=== PATIENT | female | born 1930 | race Caucasian/White ===

== ENCOUNTER 2019-01-03 02:34 | Inpatient (IN) | payer OTHER ==
[~2019-01-03] VITALS: Ht 165.1 cm; Wt 84.6 kg
[2019-01-03] MEDS ORDERED: NORVASC5 M1 PO (03:48)
[2019-01-03] MEDS ORDERED: COZAAR 25 MG TA25 M1 PO (03:51)
[2019-01-03] MEDS ORDERED: PROTONIX40 M1 PO (03:51)
[2019-01-03] MEDS ORDERED: ASPIR 8181 MG PO (03:54)
[2019-01-03 03:55] VITALS: BP 175/88
[2019-01-03] MEDS ORDERED: ALOGLIPTIN12.5 MG PO (03:56)
[2019-01-03] MEDS ORDERED: CO Q-10100 MG PO (03:57)
[2019-01-03] MEDS ORDERED: AMARYL2 MG PO (03:58)
[2019-01-03] MEDS ORDERED: FEOSOL45 M1 PO (03:59)
[2019-01-03] MEDS ORDERED: SPIRONOLACTONE25 M1 PO (04:00)
[2019-01-03] MEDS ORDERED: VITAMIN D5000 UNIT PO (04:02)
[2019-01-03] MEDS ORDERED: MELATONIN3 MG PO (04:04)
[2019-01-03] MEDS ORDERED: EFFEXOR XR75 MG PO (04:06)
[2019-01-03] MEDS ORDERED: SEROQUEL 25 MG25 M1 PO (04:08)
[2019-01-03] MEDS ORDERED: LANTUS100 UNIT/M SUBQ (04:10)
[2019-01-03] MEDS ORDERED: HUMALOG100 UNIT/1 SUBQ (04:14)
[2019-01-03] MEDS ORDERED: HYDROXYZINE HCL10 M1 PO (04:16)
[2019-01-03 04:19] VITALS: BP 175/88
[2019-01-03 06:59] VITALS: BP 175/88
[2019-01-03 07:48] VITALS: BP 112/56
[2019-01-03 09:00] VITALS: BP 112/56
[2019-01-03 14:03] LABS: URINE BILIRUBIN NEGATIVE (Negative); URINE BLOOD NEGATIVE (Negative); URINE CLARITY CLEAR; URINE COLOR YELLOW; URINE GLUCOSE-RANDOM* 1+ (Negative); URINE KETONES NEGATIVE (Negative); URINE LEUKOCYTES-REFLEX TRACE (Negative); URINE NITRITE-REFLEX NEGATIVE (Negative); URINE PROTEIN (DIPSTICK) 1+ (Negative); URINE UROBILINOGEN 0.2 E.U./dl (0.2-1.0)
[2019-01-03 14:11] LABS: BACTERIA-REFLEX None Seen /HPF (None Seen); CRYSTALS None Seen /LPF (None Seen); HYALINE CASTS 0-3 Few /LPF (None Seen); MUCUS 4-6 Moderate strn/LPF (None Seen); SQUAMOUS 0-3 Few /LPF (0-3); URINE RBC 0-2 Rare /HPF (0-2)
[2019-01-03 20:06] VITALS: BP 121/57
[2019-01-04 19:52] VITALS: BP 143/73
[2019-01-05 14:55] VITALS: BP 154/89
[2019-01-05 20:31] VITALS: BP 116/65
[2019-01-06 08:05] VITALS: BP 139/70
[2019-01-06 21:15] VITALS: BP 146/77
[2019-01-07 11:00] VITALS: BP 136/57
[2019-01-07 20:06] VITALS: BP 161/80
[2019-01-08 07:45] VITALS: BP 136/57
--- NOTE | 2019-01-08 08:19 | EKG ---
[place] [address] [facility] [place] [address] ELECTROCARDIOGRAM REPORT Name: DANIELLE JONES Room #: 526B-B ADM IN M.R.#: [id number] ������������������ Admission: 01/03/19 ������������������ Attend Phys: Toby Garcia DO Discharge: ������������������ Date of : [birth year] Report #: [id number] ����������������������������������������������������������������� [id number] THIS REPORT FOR: //name// [facility] Test Date: 2019-01-07 Test Time: 08:17:41 Pat Name: DANIELLE JONES Department: Room: [facility] Gender: F 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: MORAIMA : 1930 Requested By: Toby Garcia Order Number: [id number] MD: Fam Ferguson Measurements Intervals [place] Rate: 69 P: -18 MI: 179 QRS: -13 QRSD: 90 T: 56 QT: 409 QTc: 438 Interpretive Statements Sinus rhythm Low voltage, precordial leads Nonspecific T-wave abnormality No previous ECG available for comparison Electronically Signed On 01-08-2019 8:19:18 CDT by Fam Ferguson [email or web address] ��������������������������������������������� <ELECTRONICALLY SIGNED> ���������������������������������������� By: Fam Ferguson MD ��������������������������������������������� 01/08/19818 6 6 MD FABIAN Aguayo
[2019-01-08 23:37] VITALS: BP 136/57
--- NOTE | 2019-01-09 00:03 | H ---
[facility] [place] [address] HISTORY AND PHYSICAL Name: DANIELLE JONES Room #: 526B-B ADM IN M.R.#: [id number] Admission: 01/03/19 ������������������ Attend Phys: Toby Garcia DO Discharge: ������������������ Date of : [birth year] Report #: [id number] THIS REPORT FOR: //name// CC: Toby Garcia [facility] unknown DATE OF SERVICE: 01/03/2019 ATTENDING PHYSICIAN: Toby Garcia DO BOLT SORTER: Thalia Espinal APRN REASON FOR ADMISSION: Resident at [facility], transferred for increased depression and anxiety, confusion and resistance to care. HISTORY OF PRESENT ILLNESS: This is an 88-year-old female, , lives with her at [facility] facility. Her has an advanced vascular dementia. The patient was brought to [facility] last night for concerns about change in mental status including depression, weakness, urinary frequency. She was found to have a urinary tract infection. She was given one dose of Rocephin. Additional information from [facility], the patient was seen with two daughters present, Litzy her first DPOA, and Ping, her second. The patient is more anxious after having an episode of urinary incontinence a few weeks ago, reported that she has poor energy level and poor motivation. She has increased sleep and fair appetite. Daughters reported she has hallucinations when she is very anxious, which could last for a day, then goes away. The patient denies suicidal or homicidal ideation. Daughter reported transient suicidal statements before coming to the hospital. Daughter reported gradual cognitive deficits that were noticed over the last few months including recent episodic memory as well as loss of life skills related to tasks of self-care and house chores. The patient does not know the day of the week. She stayed in the ER since July when she and her moved to the [facility], but then stated she has been busy, traveling to many places over the last few months, so she was confused. The patient has poverty of content and statements in the ER. SUBSTANCE USE: The patient denies drinking alcohol use. PAST PSYCHIATRIC HISTORY: The patient reported treatment for anxiety and MDD for many years. She was most recently prescribed Effexor 150 mg daily, which she has been taking for at least a couple of years as well as Wellbutrin 150 mg daily. This is scheduled to increase to 300 mg daily, but the patient was hospitalized before increasing the dose. Over Mother's Day weekend, she had a hospitalization for hyperglycemia. Wellbutrin was discontinued during this stay. Daughters reported the patient had a good response to Paxil in the past, but [place] [address] HISTORY AND PHYSICAL Name: DANIELLE JONES Room #: 526B-B ADM IN M.R.#: [id number] Admission: 01/03/19 ������������������ Attend Phys: Toby Garcia DO Discharge: ������������������ Date of : [birth year] Report #: [id number] PAST MEDICAL HISTORY: Type 2 diabetes mellitus, current long-term use of insulin, anxiety and depression and suicidal thoughts, uncontrolled hypertension, likely due to above; history of acute renal failure, GERD, history of hyperlipidemia. FAMILY HISTORY: The patient's daughter reported daughter has anxiety and MDD. Another daughter has anxiety. SOCIAL HISTORY: The patient is living in assisted living since 07/2018 with her . Denied trauma history. MEDICATIONS: The patient's home medications appear to be venlafaxine, pantoprazole, insulin lispro, hydroxyzine, spironolactone, ubiquinone, alogliptin, amlodipine, melatonin, cholecalciferol, glimepiride, and aspirin. ADDITIONAL INFORMATION: Diagnosis of major depressive disorder, recurrent, severe with psychotic features; generalized anxiety disorder, cognitive disorder, unspecified, rule out dementia. This is from an outpatient consult. Dr. Anthony De La Garza increased Effexor to 225 mg daily, hydroxyzine 10 mg q.6 hours for anxiety. Neuropsych testing recommended on an outpatient basis. Family will consider trying BuSpar for anxiety after a couple of weeks of increasing the Effexor dose. It looks like this was a consult when she was inpatient. Additional information from the ER, the patient was at [facility], today she had a sudden change in mood, became agitated, irritable with nursing staff. There was no physical aggression, but there was verbal abuse directed towards nursing staff and her . In the ED, the patient continues to have agitation. She was argumentative with this job specification writer. Because of cognitive deficits and the patient is a poor historian, information obtained in this assessment was based on the patient's observation and information from her daughters. She is not oriented to situation. She is not aware of the purpose of this assessment. She is mildly paranoid. She accused the medical staff of trying to make her crazy. Urinalysis showed 1+ glucose, mucus, 0-3 hyaline casts, it showed 16-25 white blood cells per high power field. No neuro imaging is available at this time. I think I am missing some baseline labs from [facility] from the , they do show an H and H of 9.5 and 28, white blood cell count 7.5, platelet count 247,000. BUN 29, creatinine 1.3, glucose 161, GFR 37.9, to fill the gap. Glucose this afternoon was 216 postprandial. Mostly still using a wheelchair. MENTAL STATUS EXAMINATION: This is a well-developed, well-nourished female wearing glasses, appearing stated age. Attention limited. Concentration limited. Speech slow, soft. Thought process linear. Limited thought content, poverty of thought. Mood and affect irritable, congruent, dysphoric, restricted range. Memory impaired to recent events. Plan to do SLUMS or MoCA for the next [facility] [address] [place] [address] HISTORY AND PHYSICAL Name: DANIELLE JONES Room #: 526B-B ADM IN ..#: [id number] Admission: 01/03/19 ������������������ Attend Phys: Toby Garcia, Discharge: ������������������ Date of : [birth year] Report #: [id number] 24-48 hours. Insight limited. Judgment limited. Fund of knowledge below average. MEDICATIONS: Effexor XR 225 mg p.o. daily, spironolactone 25 mg p.o. daily, losartan 50 mg p.o. daily, Coenzyme Q 100 mg p.o. daily, vitamin D 5000 International Units daily, aspirin 81 mg p.o. daily, amlodipine 10 mg p.o. daily, insulin Humalog 5 units with meals subcutaneous, glimepiride 1 mg p.o. daily, pantoprazole 40 mg p.o. daily, insulin 15 units daily of Lantus, believe that is at bedtime; Seroquel 5 mg p.o. q.6 hours p.r.n. for anxiety, agitation; melatonin 3 mg p.o. at bedtime. PLAN: With these meds, I will ask the hospitalist to review the need for all the antihypertensives. It would be nice to get her off glimepiride, which can cause symptomatic hypoglycemia. In addition, I would like to see how the patient responds from a supportive environment. If the depression goes away quickly that will be evidence that she may benefit from a different kind of placement. Time spent on review of her records, coordination of care is at least 60 minutes, 50% spent on counseling and coordination of care including phone calls with 2 of her daughters. STRENGTHS: She is insured, supportive family. WEAKNESSES: Advanced needs, likely major neurocognitive disorder. ��������������������������������������������� <ELECTRONICALLY SIGNED> ���������������������������������������� By: Toby Garcia DO ��������������������������������������������� 01/09/19 0003 1514 1600 Toby Garcia DO /nt
[2019-01-09 07:15] VITALS: BP 132/66
[2019-01-09 09:47] VITALS: BP 132/66
[2019-01-09 13:28] LABS: BE(vivo) -2.5 mmol/L (-2 to +3); HCO3 22.2 mmol/L (22.0-26.0); PCO2 38.5 mmHg (35.0-45.0); PO2 50.1 mmHg (80.0-100.0); pH 7.379 (7.360-7.450); sO2 84.9 % (92.0-98.0)
[2019-01-09 13:41] LABS: CALCIUM 9.3 mg/dL (8.5-10.1); CREATININE 2.3 mg/dL (0.6-1.0); POTASSIUM 4.9 mmol/L (3.5-5.1)
[2019-01-09 14:13] LABS: HEMATOCRIT 25.1 % (37.0-47.0); HEMOGLOBIN 8.5 gm/dL (12.0-15.0); MCH 35.6 pg (26.0-34.0); MCHC 33.9 g/dL (28.0-37.0); MCV 105.2 fL (80.0-100.0); RBC 2.39 mil/uL (4.20-5.00); RDW 13.7 % (10.5-14.5); WBC 14.4 thou/uL (4.0-11.0)
[2019-01-09] MEDS ORDERED: MUCUS ER600 M1 PO (20:30)
[2019-01-09] MEDS ORDERED: TYLENOL325 MG PO (20:31)
[2019-01-09] MEDS ORDERED: MIRALAX17 GM PO (20:32)
[2019-01-09] MEDS ORDERED: ONDANSETRON HCL4 M2 IV PUSH (20:34)
--- NOTE | 2019-01-10 07:38 | EKG ---
[place] [address] [facility] [place] [address] ELECTROCARDIOGRAM REPORT Name: DANIELLE JONES Room #: [facility] IN ..#: [id number] ������������������ Admission: 01/03/19 ������������������ Attend Phys: Toby Garcia DO Discharge: 01/09/19 ������������������ Date of : [birth year] Report #: [id number] ����������������������������������������������������������������� [id number] THIS REPORT FOR: //name// [facility] Test Date: 2019-01-09 Test Time: 12:41:37 Pat Name: DANIELLE JONES Department: Room: [facility] Gender: F 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 : 1930 Requested By: Tboy Nash Order Number: [id number] MD: Rafy Call Measurements Intervals [place] Rate: 77 P: 35 MA: 168 QRS: -10 QRSD: 92 T: 50 QT: 392 QTc: 444 Interpretive Statements Sinus rhythm Nonspecific T wave abnormality Compared to ECG 01/07/2019 08:17:41 No significant change was found Electronically Signed On 01-10-2019 7:37:55 CDT by Rafy Call [email or web address] ��������������������������������������������� <ELECTRONICALLY SIGNED> ���������������������������������������� By: Rafy Call MD, [facility] ��������������������������������������������� 01/10/19 0737 1241 1241 Rafy Call MD, [facility] /EPI
--- NOTE | 2019-01-11 08:18 | D ---
[facility] [place] [address] DISCHARGE SUMMARY Name: DANIELLE JONES Room #: 526B-B [facility] IN M.R.#: [id number] Admission: 01/03/19 ������������������ Attend Phys: Toby Garcia DO Discharge: 01/09/19 ������������������ Date of : [birth year] Report #: [id number] THIS REPORT FOR: //name// CC: Toby Garcia [facility] unknown DATE OF SERVICE: 01/09/2019 INPATIENT PSYCHIATRIC DISCHARGE SUMMARY ATTENDING PHYSICIAN: Toby Garcia DO. INSURANCE UNDERWRITER SALES: Toby Nash M.D. DISCHARGE DIAGNOSES: Major neurocognitive disorder, likely due to Alzheimer disease with behavioral disturbance. Medical comorbidities are numerous, including a rapid response that was called when the patient was transferred; includes urinary tract infection, on Rocephin; acute renal failure, improved; hypertension; diabetes mellitus and appearing to be in acute hypoxic respiratory failure. DISPOSITION: Diet is per Dr. Nash as well as medications per the Hospitalist Service. REASON FOR ADMISSION: Resistance with cares, agitation in the nursing facility. HOSPITAL COURSE: The patient was admitted to the Geriatric Psychiatry Unit. We initially had some success with the patient with treating her with quetiapine. The patient had become excessively somnolent and I had elected in the last day or two to discontinue the quetiapine and maintain on her cognitive enhancers. Unfortunately, the patient has taken a negative turn in terms of her overall health. Laboratories prior to this admission include a negative U/A. Sodium 133, potassium 4.9, chloride 97, BUN 42 and creatinine 2.3. So, I do believe that is a significant renal impairment. Calcium 9.3. ABG showed a pO2 of 50 on room air, so she was put on 5 liters. CBC: White count 14.4, H and H 8.5 and 25.1 and platelet count 230,000. This patient was emergently discharged. Therefore, I do not have a mental status exam. It is not present at this time. PROGNOSIS: Prognosis is guarded to poor. Certainly if she does not make a [facility] [address] [place] [address] DISCHARGE SUMMARY Name: DANIELLE JONES Room #: 526B-B [facility] IN M.R.#: [id number] Admission: 01/03/19 ������������������ Attend Phys: Toby Garcia DO Discharge: 01/09/19 ������������������ Date of : [birth year] Report #: [id number] rapid turnaround, there is a good possibility of at her age from septic shock. ��������������������������������������������� <ELECTRONICALLY SIGNED> ���������������������������������������� By: Toby Garcia DO ��������������������������������������������� 01/11/19 0818 2336 0059 Toby Garcia DO /nt
== END 2019-01-09 13:39 | DRG 56 ==
LOC: SBH 02:34
PROVIDERS: Hospitalist; Nurse Practitioner; ADMIT Psychiatry & Neurology Psychiatry
DX: G30.9 Alzheimer's disease, unspecified (principal); J96.01 Acute respiratory failure with hypoxia; F33.3 Major depressive disorder, recurrent, severe with psychotic symptoms; F02.81 Dementia in other diseases classified elsewhere, unspecified severity, with behavioral disturbance; N39.0 Urinary tract infection, site not specified; N17.9 Acute kidney failure, unspecified; I10 Essential (primary) hypertension; M79.89 Other specified soft tissue disorders; E11.9 Type 2 diabetes mellitus without complications; K21.9 Gastro-esophageal reflux disease without esophagitis; F41.1 Generalized anxiety disorder; M25.569 Pain in unspecified knee; E78.5 Hyperlipidemia, unspecified; Z90.49 Acquired absence of other specified parts of digestive tract; Z90.710 Acquired absence of both cervix and uterus; Z79.82 Long term (current) use of aspirin; Z79.899 Other long term (current) drug therapy; Z88.5 Allergy status to narcotic agent; Z88.8 Allergy status to other drugs, medicaments and biological substances
CPT/HCPCS: 10880

== ENCOUNTER 2019-01-09 12:57 | Inpatient (IN) | payer OTHER ==
[~2019-01-09] VITALS: Ht 162.6 cm; Wt 69.7 kg
--- NOTE | ~2019-01-09 | HC ---
[facility] [place] [address] CONSULTATION Name: DANIELLE JONES Room #: 350-P ADM IN M.R.#: [id number] Admission: 01/09/19 ������������������ Attend Phys: Toby Nash MD Discharge: ������������������ Date of : [birth year] Report #: [id number] THIS REPORT FOR: //name// CC: Toby Nash FAM unknown Bean Cali MD DATE OF SERVICE: 01/17/2019 REQUESTING PHYSICIAN: Dr. Cali. CHIEF COMPLAINT: Multiple strokes. HISTORY OF PRESENT ILLNESS: The patient is an 88-year-old female who initially presented to [facility] for anxiety and depression. She was seen initially 01/03, unfortunately had development of multiple medical problems including a left ankle fracture. She developed pneumonia, which is felt to be aspiration type and is very likely to be due to her previous existing dementia as well as multiple lacunar infarcts, which were discovered on subsequent MRI. The patient has had overall improvement today; however, her overall functional status has declined significantly secondary to these multiple problems that have developed. She had previously been in assisted living facility, [facility] with her who also has mild cognitive impairment. At this point in time, the family members have reported that she has had a significant up and down course throughout her admission and this has led them to be concerned about her overall quality of life and longevity. The patient at this point in time has some difficulty communicating, although she is much more communicative per the family than she had been previously. She appears to be in no acute distress at this time. PAST MEDICAL HISTORY: Hypertension, type 2 diabetes, hypercholesterolemia, GERD, TIA and of course most recent recurrent lacunar strokes, history of suicidal ideation. PAST SURGICAL HISTORY: Appendectomy, hysterectomy, left hip ORIF. ALLERGIES: CODEINE, LASIX, KEFLEX, DEMEROL. SOCIAL HISTORY: No tobacco use, history of alcohol or illicit drug use. Again, was living at [facility], currently DNR status. has mild cognitive impairment. She lives in assisted living. Two daughters are present for my interview today. MEDICATIONS: Reviewed and as per her current medications. FAMILY HISTORY: Noncontributory. [facility] [address] [place] [address] CONSULTATION Name: DANIELLE JONES Room #: 350-P [facility] IN .R.#: [id number] Admission: 01/09/19 ������������������ Attend Phys: Toby Nash MD Discharge: ������������������ Date of : [birth year] Report #: [id number] REVIEW OF SYSTEMS: GENERAL: She denies significant discomfort and denies significant changes in breathing status, appears to be in no acute distress as previously stated. PHYSICAL EXAMINATION: VITAL SIGNS: Temperature 36.4, pulse 59, respirations 20, blood pressure 104/48, 100% on nasal cannula. GENERAL: Appears to be alert. She is at least oriented to self, but not to others or date or time or location. CARDIOVASCULAR: Regular rate and rhythm without murmur. LUNGS: Anteriorly clear to auscultation. No respiratory distress or accessory muscle use. ABDOMEN: No significant distention. She does have bowel sounds, but diminished. LABORATORY DATA: Included hemoglobin of 9.5, MCV 103.4, platelets 307. Potassium 3.3, creatinine 1.3, BUN 39. ASSESSMENT AND PLAN: 1. Multiple lacunar infarcts, at this time these have had significant effect on overall status including inducing delirium, inducing her to have inability to feed herself, possibly appetite deficiency and dehydration. Because of this reason, we will likely have difficulty with rehabilitation. I have discussed multiple options for family at this time including rehabilitation with senior living placement, long-term care placement and long-term care with hospice versus home with significant home assistance, they are leaning towards one of the first three options, although likely will pursue senior living. It sounds like they already have discussed this with the manager rn case and have the names of some facilities that might accept her insurance. Additionally, they are pursuing Medicaid application at this time. I told them that we may be able to assist with this. Additionally, they are interested in long-term care placement after this for both her and her and will be looking for locations such as this. I have consulted case management to discuss this. I have discussed again hospice as an option. They are understanding and amenable to this in the future, most likely, but have not decided whether they will immediately elect this or later on in the process. 2. Aspiration pneumonia again likely due to multiple CVAs and likely to recur as discussed with family, although speech therapy may be attempted and occupational therapy will have significant feeding difficulties and will need to have assistance at whatever locations she is at. 3. Dementia. Again, playing into the overall diagnosis and care of this patient, appreciate primary team's management. 4. Delirium, again contributing to overall. 5. Ankle fracture. Appreciate Dr. Casper's management and they did discuss that they are likely waiting on his further clearance prior to leaving and that [facility] [address] [place] [address] CONSULTATION Name: DANIELLE JONES Room #: 350-P ADM IN M.R.#: [id number] Admission: 01/09/19 ������������������ Attend Phys: Toby Nash MD Discharge: ������������������ Date of : [birth year] Report #: [id number] we will need further guidance from him at senior living or whether she is pursuing some other management. Thank you very much for this consultation. I have provided them with my contact information in case any further information is needed for them. Otherwise, we will sign off at this time. ��������������������������������������������� ���������������������������������������� By: ��������������������������������������������� 1842 192 Solis Calderón DO /alycia
[~2019-01-09 12:57] MED LIST: ALOGLIPTIN12.5 MG PO; AMARYL2 MG PO; ASPIR 8181 MG PO; CO Q-10100 MG PO; COZAAR 25 MG TA25 M1 PO; EFFEXOR XR75 MG PO; FEOSOL45 M1 PO; HUMALOG100 UNIT/1 SUBQ; HYDROXYZINE HCL10 M1 PO; LANTUS100 UNIT/M SUBQ; MELATONIN3 MG PO; NORVASC5 M1 PO; PROTONIX40 M1 PO; SEROQUEL 25 MG25 M1 PO; SPIRONOLACTONE25 M1 PO; VITAMIN D5000 UNIT PO
[2019-01-09 15:00] VITALS: BP 123/70
--- NOTE | 2019-01-09 15:01 | NUR ---
GERSON was notified that pt need a rapid response team due to pt being leithargic, and not responsive at the time. Pt was transported to the medical unit. Pt family was notified according to the charge nurse. GERSON notified Dr. Garcia that pt was not feeling well. GERSON will follow-up pt family on Friday, January 11, 2019.
--- NOTE | 2019-01-09 16:14 | NUR ---
PT DIRECT ADMIT FROM [facility] FOR AMS. RESPONDING TO STIMULI AT THIS TIME. 3L NC, HEAD OF BED ELEVATED. DR KHALIL ROUNDED ON PT WITH ORDER FOR HALDOL. FLUIDS STARTED. INCONTINENT, LEFT ANKLE DIFORMITY. PER REPORT PATIENT WAS AMBULATING FOR WHEN ADMITTED TO [facility], COMPLAINED OF LEG PAIN, TODAY PT UNRESPONSIVE WITH AMS. MOVED TO [facility]. ADMISSION HISTORY AND ASSESMENT COMPLETED. RT ROUNDED WITH BREATHING TREATMENT. PLACE ON CONTINOUS O2 MONITOR. FALL PRECAUTIONS IN PLACE.
[2019-01-09 17:00] VITALS: BP 155/71
[2019-01-09 20:08] VITALS: BP 139/63
[2019-01-09] MEDS ORDERED: MUCUS ER600 M1 PO (20:30)
[2019-01-09] MEDS ORDERED: TYLENOL325 MG PO (20:31)
[2019-01-09] MEDS ORDERED: MIRALAX17 GM PO (20:32)
[2019-01-09] MEDS ORDERED: ONDANSETRON HCL4 M2 IV PUSH (20:34)
--- NOTE | 2019-01-09 22:35 | NUR ---
Assumed care of the pt. from 1900 til now. She has rested quietly and has not been verbal to staff. Bed alarm is on.
[2019-01-10 00:31] LABS: URINE BILIRUBIN NEGATIVE (Negative); URINE BLOOD TRACE (Negative); URINE CLARITY CLEAR; URINE COLOR ORANGE; URINE GLUCOSE-RANDOM* 3+ (Negative); URINE KETONES NEGATIVE (Negative); URINE LEUKOCYTES-REFLEX NEGATIVE (Negative); URINE NITRITE-REFLEX NEGATIVE (Negative); URINE PROTEIN (DIPSTICK) 1+ (Negative); URINE SPECIFIC GRAVITY 1.025 (1.005-1.035); URINE UROBILINOGEN 0.2 E.U./dl (0.2-1.0)
[2019-01-10 00:39] LABS: AMORPHOUS URATES Few /LPF (None Seen); BACTERIA-REFLEX None Seen /HPF (None Seen); CRYSTALS None Seen /LPF (None Seen); FINE GRANULAR CASTS 4-10 Moderate /LPF (None Seen); MUCUS None Seen strn/LPF (None Seen); SQUAMOUS 0-3 Few /LPF (0-3); URINE RBC None Seen /HPF (0-2); URINE WBC-REFLEX None Seen /HPF (0-5)
--- NOTE | 2019-01-10 02:33 | NUR ---
Assumed pt care at 2200. Pt is lethargic/sedated awakens to sternal rub and answers NO when asked if she's in pain. Midnight dose of Haldol held. VSS. Incontinent of bladder,straight cathed for UA sample with assist of 2 without any problems. Resting without any distress noted at this time,O2 on @ 3L/NC. Pt kept NPO,IV fluids infusing via RFA without any problems. Bed alarm on and fall precautions in place.
[2019-01-10 04:29] VITALS: BP 142/70
[2019-01-10 05:31] LABS: ABSOLUTE NEUTROPHILS 8.4 thou/uL (1.4-8.2); BASOPHILS 0.6 % (0.0-2.0); EOSINOPHILS 0.1 % (0.0-3.0); HEMATOCRIT 23.5 % (37.0-47.0); HEMOGLOBIN 7.9 gm/dL (12.0-15.0); MCH 35.3 pg (26.0-34.0); MCHC 33.6 g/dL (28.0-37.0); MCV 105.1 fL (80.0-100.0); MONOCYTES 9.9 % (1.0-8.0); PLATELET COUNT 211 thou/uL (150-400); POLYS 82.4 % (36.0-66.0); RBC 2.24 mil/uL (4.20-5.00); RDW 13.6 % (10.5-14.5); WBC 10.2 thou/uL (4.0-11.0)
[2019-01-10 05:37] LABS: CALCIUM 8.9 mg/dL (8.5-10.1); CREATININE 2.1 mg/dL (0.6-1.0); MAGNESIUM 2.1 mg/dL (1.8-2.4)
[2019-01-10 08:59] VITALS: BP 145/65
--- NOTE | 2019-01-10 10:32 | NUR ---
ASSUMED CARE 0700. PT REMAINS SEDATIVE, WILL RESPOND TO NAME AND STIMULI AND ANSWER YES NO QUESTIONS, SHE DENIES PAIN. REMAINS NPO WAITNG FOR ST TO EVAL AND TREAT. Q2TURN. CLOSE TO NURSE STATION FOR OVERSITE. NOT ABLE TO USE CALL LIGHT. STAFF TO ANTICIPATE NEEDS. CONTINUE TO MONITOR
--- NOTE | 2019-01-10 15:03 | NUR ---
PT ADMITTED RELATED TO AMS. CM REVIEWED CHART AND SPOKE WITH CARE TEAM. CM MET WITH PT AND DTRS AT BEDSIDE THIS DAY. PT WASN'T ABLE TO ANSWER ASSESSMENT QUESTIONS. PT'S DTRS INDICATED THAT THAT PT HAD BEEN IN SBHU HERE AT [facility] FOR 6 DAYS BEHAVIORAL SERVICES TECH. PRIOR TO THAT PT HAD BEEN LIVING IN ASSISTED LIVING AT [facility]. DTRS INDICATED THAT HAD BEEN GETTING ASSISTANCE WITH [facility] BEHAVIORAL SERVICES TECH BUT HAD BEEN ABLE TO PERFORM HER OWN TRANSFERS. DTRS INDICATED THAT THEY WERE LOOKING INTO OTHER FACILTIES AND LEVELS OF CARE FOR WHEN PT IS MEDICALLY STABLE TO DISCHARGE. CM TO FOLLOW INDICATED WITH DC PLANNING.
[2019-01-10 15:27] VITALS: BP 152/71
[2019-01-10 19:30] VITALS: BP 161/76
--- NOTE | 2019-01-10 23:43 | NUR ---
RT PAGED, OXYGEN INCREASED TO 5 L DUE TO SAT 88, ROEL Boyd NOTIFIED, ROUNDED ON PATIENT.
[2019-01-11] VITALS (20 sets, daily range): BP systolic 127–191; BP diastolic 67–106
--- NOTE | 2019-01-11 03:42 | NUR ---
DROWSY BUT WAKES UP EASILY, INTERACTIVE AT START OF SHIFT EVEN THOUGH EYES WERE CLOSED. TURNED/REPOSITIONED EVERY 2 HOURS, PERICARE PROVIDED, INCONTINENT OF BLADDER, NO BM PASSED, LEFT ANKLE DEFORMED, STILL AWAITING FOR ORTHOTICS TO BRING BRACE, BED ALARM ON, IVF INFUSING, MONITORED.
--- NOTE | 2019-01-11 05:42 | NUR ---
SAT DROPPED TO 86 WITH 6 L, RT HERE, GAVE TREATMENT, LUNGS COARSE, WHEEZY, OXYGEN INCREASED TO 7 USING HIGH COLT WITH HUMIDIFIER, CALLED TO ROEL CHO, SINCE CREAT IS HIGH, WILL DO VQ SCAN THIS MORNING, WILL JUST MONITOR THE BP FOR NOW, ALSO AWARE OF PT BEING TACCHY.
[2019-01-11 06:04] LABS: HEMATOCRIT 27.1 % (37.0-47.0); HEMOGLOBIN 9.1 gm/dL (12.0-15.0); MCH 35.3 pg (26.0-34.0); MCHC 33.7 g/dL (28.0-37.0); MCV 104.6 fL (80.0-100.0); RBC 2.59 mil/uL (4.20-5.00); RDW 13.6 % (10.5-14.5); WBC 13.5 thou/uL (4.0-11.0)
--- NOTE | 2019-01-11 06:04 | NUR ---
TALKED TO ROEL AGAIN, HEART RATE 130-135, OXYGEN ON 7 LITERS WITH SAT OF 88-91, WILL TRANSFER TO MED SURG TELE IN ICU.
[2019-01-11 06:19] LABS: CALCIUM 9.4 mg/dL (8.5-10.1); CREATININE 1.4 mg/dL (0.6-1.0); POTASSIUM 4.4 mmol/L (3.5-5.1)
--- NOTE | 2019-01-11 06:30 | NUR ---
Pt arrived ICU via bed, accompanied with 4 clayton staffs to room 237. She is being tx here due to increasing needed of oxygination. She was on 8 liters of oxygen via N/C. O2 sat 86% upon arrival,increased to her 15 liters with little improvement. Placed her on 15 liter of NRB with improvement of SPO2. She is very tachypnic, RR in 30's . Lung sound very coarse ,crackle t/o. ST on monitor, BP elevated due to respiratory distress. Will obtain ABG and CXR stat.
--- NOTE | 2019-01-11 06:35 | NUR ---
PT TRANSFERRED TO ICU, ROOM 237, ROBBY HUMMEL, WAS NOTIFIED OF HER TRANSFER.
--- NOTE | 2019-01-11 07:10 | NUR ---
PATIENT TRANSFERRED TO ICU PRIOR TO OT EVALUATION DUE TO A CHANGE IN MEDICAL STATUS. WILL AWAIT NEW ORDERS ONCE PATIENT IS MEDICALLY APPROPRIATE.
[2019-01-11 07:20] LABS: HCO3 16.9 mmol/L (22.0-26.0); PCO2 28.5 mmHg (35.0-45.0); sO2 98.4 % (92.0-98.0)
--- NOTE | 2019-01-11 07:42 | NUR ---
I tried to call Ms.Angie Patricia who is list as pt's DPOA multiple time w/o any sucess. Notified am shift RN about my actions.
--- NOTE | 2019-01-11 07:51 | NUR ---
ORDERS FOR EVAL AND TREAT HOWEVER Pt TRANSFERRED TO ICU. WILL PLACE ON HOLD AND AWAIT NEW ORDERS TO RESUME WHEN APPROPRIATE
--- NOTE | 2019-01-11 08:23 | HC ---
[facility] [place] [address] CONSULTATION Name: DANIELLE JONES Room #: 237-P ADM IN M.R.#: [id number] Admission: 01/09/19 ������������������ Attend Phys: Toby Nash MD Discharge: ������������������ Date of : [birth year] Report #: [id number] THIS REPORT FOR: //name// CC: Toby Nash [facility] unknown DATE OF SERVICE: 01/09/2019 DATE OF ADMISSION: To [facility] is 01/09/2019. REQUESTING PHYSICIAN: Toby Nash M.D. REASON FOR CONSULTATION: Transfer from [facility] due to medical complications, including shortness of breath, ankle sprain and rapid response. SUBJECTIVE DATA: An 88-year-old female who has been on my service on the [facility] about a week. Apparently, she had a precipitous decline over about 2 days. She has had a marked gait disturbance, some irritability and some reluctance to participate. What is put on the Hospit[facility] notes so far, she appears to have pneumonia with hypoxia present as well as a systemic inflammatory response syndrome. Broad-spectrum antibiotics have been started at this time. The patient is minimally responsive to commands. This is also a deterioration of previous stay. I saw her at bedside with her nurse present. I think the outset of this, aside from the intervention the automation operator is doing, we will go ahead and start her on scheduled IV Haldol 0.5 q. 8 hours as she will obviously be at high risk for continued deliriogenic phenomena. Regarding her case in general, she has a past psychiatric history and treatment for anxiety and MDD for many years. She was prescribed Effexor in the past as well as Wellbutrin. Over this Mother's Day weekend, she had hospitalization for hyperglycemia. Wellbutrin was discontinued. Daughters reported the patient had a good response to Paxil in the past essentially. She was admitted here on 01/03/2019 from [facility] for increased depression and anxiety, resistance to care. ROS: not able to be obtained due to her clinical condition. PAST MEDICAL HISTORY: Includes type 2 diabetes mellitus, technician terminal and repeater use of insulin. She has had some past suicidal thoughts, no attempts; uncontrolled hypertension in the past; history of acute renal failure; GERD and hyperlipidemia. FAMILY HISTORY: Daughter reported has anxiety and MDD. Another daughter has anxiety. [address] [address] CONSULTATION Name: DANIELLE JONES Room #: 237-P [facility] IN M.R.#: [id number] Admission: 01/09/19 ������������������ Attend Phys: Toby Nash MD Discharge: ������������������ Date of : [birth year] Report #: [id number] SOCIAL HISTORY: The patient is living in assisted living since 07/2018 with her . He is not able to participate in her care at this point. PHYSICAL EXAMINATION: Lying in bed, on oxygen and IV fluids. MENTAL STATUS EXAMINATION: A well-developed, disheveled female, appearing stated age. Attention impaired. Concentration impaired. Speech, nonverbal. The patient had a weak response to request to squeeze my fingers. She did have pain in response to noxious stimuli. Mood and affect were not verbalized, appeared to be constricted. Did not appear to be responding to external stimuli. Memory Impaired. Insight impaired. Judgment impaired. Fund of knowledge well below average. ASSESSMENT: An 88-year-old female seen at the request of Dr. Nash after transfer emergently from the Psychiatric Unit for both assessment of delirium due to general medical condition, namely pneumonia, systemic inflammatory response syndrome, history of major neurocognitive disorder, depression and anxiety. PLAN: I advised Dr. Nash that unnecessary medication should be stopped at this point. I think there is a legitimate role for haloperidol to help treat her prophylax against delirium. I would recommend the patient stay out of the ICU as I do not think she would likely survive any kind of cardiac arrest or pulmonary arrest. I will leave that to Dr. Nash to get in touch with her family at this point and I will follow along with you. Time spent on the review of records and coordination of care of this patient is approximately 40 minutes. I will dictate a brief discharge summary separately. ��������������������������������������������� <ELECTRONICALLY SIGNED> ���������������������������������������� By: Toby Garcia DO ��������������������������������������������� 01/11/19 0823 [id number] Toby Garcia DO /nt
--- NOTE | 2019-01-11 14:38 | NUR ---
PATIENT WAS EVALUATED WITH BEDSIDE SWALLOW ON 01/10/19 BUT THEN TRANSFERRED TO ICU FOR HYPOXEMIA. AWAITING NEW ORDERS.
[2019-01-12] VITALS (24 sets, daily range): BP systolic 102–167; BP diastolic 51–100
[2019-01-12 05:00] LABS: CALCIUM 9.6 mg/dL (8.5-10.1); CREATININE 1.6 mg/dL (0.6-1.0); POTASSIUM 4.2 mmol/L (3.5-5.1)
[2019-01-12 05:02] LABS: HEMATOCRIT 28.7 % (37.0-47.0); HEMOGLOBIN 9.8 gm/dL (12.0-15.0); MCH 35.6 pg (26.0-34.0); MCHC 34.2 g/dL (28.0-37.0); MCV 104.1 fL (80.0-100.0); RBC 2.76 mil/uL (4.20-5.00); RDW 13.5 % (10.5-14.5); WBC 10.3 thou/uL (4.0-11.0)
--- NOTE | 2019-01-12 09:29 | 2DMMODE ---
[facility] [place] [address] 2 D/M-MODE ECHOCARDIOGRAM Name: JUSTIN JONESCHARY Hermosillo Room #: 237-P ADM IN M.R.#: [id number] ������������� Admission: 01/09/19 ������������� Attend Phys: Toby Nash MD Discharge: ��� ������������� ��� Date of : [birth year] Date of Service: 01/12/19 0928 �� Report #: [id number] �������� ��������������������������������������������[id number] THIS REPORT FOR: //name// APPROVED REPORT Study performed: 01/12/2019 08:11:29 EXAM: Comprehensive 2D, Doppler, and color-flow Echocardiogram Patient Location: ICU Room #: [facility] Status: routine BSA: 1.79 HR: 100 bpm BP: 139/73 mmHg Rhythm: NSR Other Information Study Quality: Good Indications Diabetes Dyspnea Hypertension/HDD 2D Dimensions RVDd: 29.25 mm IVSd: 11.82 (7-11mm) LVOT Diam: 19.67 (18-24mm) LVDd: 33.83 mm PWd: 12.11 (7-11mm) Ascending Ao: 29.82 (22-36mm) LVDs: 26.16 (25-40mm) Aortic Root: 27.92 mm IVC: 13.00 mm Volumes Left Atrial Volume (Systole) Single Plane 4CH: 58.59 mL Single Plane 2CH: 45.94 mL LA ESV Index: 32.00 mL/m2 Aortic Valve AoV Peak Ming.: 1.67 m/s AO Peak Gr.: 11.16 mmHg LVOT Max P.83 mmHg LVOT Max V: 0.84 m/s SIDRA Vmax: 1.53 cm2 Mitral Valve E/A Ratio: 0.5 [facility] [address] [place] [address] 2 D/M-MODE ECHOCARDIOGRAM Name: KARENDANIELLE Room #: 237-[facility] IN [facility].#: [id number] ������������� Admission: 01/09/19 ������������� Attend Phys: Toby Nash MD Discharge: ��� ������������� ��� Date of : [birth year] Date of Service: 01/12/19 0928 �� Report #: [id number] �������� ��������������������������������������������[id number] MV Decel. Time: 339.68 ms MV E Max Ming.: 0.86 m/s MV A Ming.: 1.61 m/s MV PHT: 98.51 ms IVRT: 161.48 ms Pulmonary Valve PV Peak Ming.: 0.91 m/s PV Peak Gr.: 3.31 mmHg Pulmonary Vein P Vein S: 0.44 m/s P Vein A: 0.34 m/s P Vein D: 0.24 m/s P Vein A Dur.: 92.3 msec P Vein S/D Ratio: 1.83 Tricuspid Valve TR Peak Ming.: 3.16 m/s TR Peak Gr.: 40.05 mmHg PA Pressure: 45.00 mmHg Left Ventricle The left ventricle is normal size. Mild concentric left ventricular hypertrophy. Left ventricular systolic function is moderate to severely decreased. Hypokinesis of mid to distal septum, armando-apex LVEF is 30-35%. Mild diastolic dysfunction is present (impaired relaxation pattern). Right Ventricle The right ventricle is normal size. The right ventricular systolic function is normal. Atria Left atrium is at the upper limits of normal. Right atrium is at the upper limits of normal. Aortic Valve Aortic valve is calcified. Mild aortic regurgitation. There is no aortic valvular stenosis. Mitral Valve Moderate mitral annular calcification Trace to mild mitral regurgitation. No evidence of mitral valve stenosis. Tricuspid Valve The tricuspid valve is normal in structure. There is trace tricuspid regurgitation. Estimated PAP 45 mmHg. There [place] [address] 2 D/M-MODE ECHOCARDIOGRAM Name: DANIELLE JONES Bay Room #: 237-P [facility] IN .R.#: [id number] ������������� Admission: 01/09/19 ������������� Attend Phys: Toby Nash MD Discharge: ��� ������������� ��� Date of : [birth year] Date of Service: 01/12/19 0928 �� Report #: [id number] �������� ��������������������������������������������[id number] Pulmonic Valve The pulmonary valve is normal in structure. There is no pulmonic valvular regurgitation. Great Vessels The aortic root is normal in size. IVC is normal in size and collapses >50% with inspiration. Pericardium There is no pericardial effusion. <Conclusion> Left ventricular systolic function is moderate to severely decreased. Hypokinesis of mid to distal septum, armando-apex LVEF is 30-35%. Mild diastolic dysfunction Aortic valve is calcified. Mild aortic regurgitation, no stenosis. Moderate mitral annular calcification. Trace to mild mitral regurgitation. There is trace tricuspid regurgitation. Estimated pulmonary artery pressure of 45 mmHg. There is no pericardial effusion. ��������������������������������������������� <ELECTRONICALLY SIGNED> ���������������������������������������� By: Rafy Call MD, [facility] ��������������������������������������������� 01/12/19927 7 7 Rafy Call MD, FACC /INF
--- NOTE | 2019-01-12 15:56 | NUR ---
SW reviewed chart and spoke with nursing and attending physician. Pt was transferred to ICU from due to respiratory distress. Pt's family has made her DNR since time in ICU. Pt on 15L O2. Pt with new ankle fx. SW met with pt and dtr, Ping, at bedside. Per Ping, pt's family have been discussing eventual discharge plans for pt when she is ready for discharge. Pt will not be returning to [facility] unit at this time. SW discussed possible SNF/LTC placement or memory care facilities. SW to follow up with pt and family tomorrow to further discuss. Pt will need a Level 2 assessment if going to SNF due to recent stay on [facility]. SW is following to assist as needed with discharge planning.
--- NOTE | 2019-01-12 18:54 | NUR ---
DIFFICULT TO AROUSE FOR DINNER. DID OPEN EYES AND REFUSE DINNER. LEFT ANKLE UP ON PILLOW. HOB UP 30 DEGREES.
[2019-01-13] VITALS (24 sets, daily range): BP systolic 99–169; BP diastolic 45–89
[2019-01-13 05:44] LABS: HEMATOCRIT 25.7 % (37.0-47.0); HEMOGLOBIN 8.8 gm/dL (12.0-15.0); MCH 35.9 pg (26.0-34.0); MCV 105.4 fL (80.0-100.0); RBC 2.44 mil/uL (4.20-5.00); RDW 13.7 % (10.5-14.5); WBC 9.3 thou/uL (4.0-11.0)
--- NOTE | 2019-01-13 05:48 | NUR ---
Assumed patient care at 1900. Patient is lying in the bed with eyes shut. Patient noted to be on 3 L high flow NC. Patient is very drowsy during this shift and it takes multiple calls to stimulate patient. Patient does follow commands but then drifts back off to sleep. Family visited and stayed several hours at bedside. Assessments and VS completed and charted per ICU protocol. Bed is locked and in the lowest position with the bed exit alarm on. No acute events occurred during this shift other than patient being very drowsy. Hourly rounding completed.
[2019-01-13 05:52] LABS: CALCIUM 8.8 mg/dL (8.5-10.1); CREATININE 1.7 mg/dL (0.6-1.0); POTASSIUM 3.8 mmol/L (3.5-5.1)
[2019-01-13 12:00] LABS: BE(vivo) -6.2 mmol/L (-2 to +3); HCO3 18.1 mmol/L (22.0-26.0); PCO2 31.6 mmHg (35.0-45.0); PO2 77.2 mmHg (80.0-100.0); pH 7.376 (7.360-7.450); sO2 95.3 % (92.0-98.0)
--- NOTE | 2019-01-13 13:07 | NUR ---
DIFFICULT TO AROUSE FROM -12, AROUSED FOR LUNCH AND ATE 30% BY BEING FED. DRANK 120CC TEA WITHOUT DIFFICULTY - REFUSES TO OPEN EYES. OPENS MOUTH AND SUCKS ON STRAW BY FOLLOWING COMMANDS. IV LEFT ARM. MCDONALD WITH CLEAR YELLOW URINE OUT. HOB UP 3O DEGREES. FAMILY AT BEDSIDE. 02 AT 3L. DENIES PAIN. LEFT ANKLE REMAINS ECCYMOTIC AND DEFORMED.
[2019-01-14] VITALS: BP 166/75
--- NOTE | 2019-01-14 02:05 | NUR ---
PT TO TRANSFER to room 361; report called to Carine HARRIS
[2019-01-14 03:30] VITALS: BP 159/85
--- NOTE | 2019-01-14 05:52 | NUR ---
PATIENT ARRIVED ON UNIT AROUND 0230 VIA CART FROM ICU. DENIES PAIN. OBEYS COMMANDS. DOES NOT OPEN EYES UNLESS TALKED TO. MCDONALD PATENT YELLOW URINE WITH SEDIMENT. SLEPT OFF AND ON DURING NIGHT.
[2019-01-14 08:03] VITALS: BP 168/93
[2019-01-14 10:28] LABS: CALCIUM 8.7 mg/dL (8.5-10.1); CREATININE 1.6 mg/dL (0.6-1.0); POTASSIUM 3.6 mmol/L (3.5-5.1)
[2019-01-14 11:20] VITALS: BP 134/63
[2019-01-14 17:03] VITALS: BP 152/79
--- NOTE | 2019-01-14 17:38 | NUR ---
PT HAS BEEN MORE AWAKE TODAY PER FAMILY AND HAS EATEN OVER 50% OF EACH MEAL..WILL ENCOURAGE INTAKE..
[2019-01-14 20:07] VITALS: BP 177/95
[2019-01-15 05:05] VITALS: BP 157/83
--- NOTE | 2019-01-15 05:27 | NUR ---
PT LYING IN BED. NO APPARENT PAIN. RESTING COMFORTABLY. NO NEEDS VOICED. CALL LIGHT WITHIN REACH. WILL CONTINUE TO PROVIDE FREQUENT OBSERVATION.
[2019-01-15 06:56] VITALS: BP 151/88
[2019-01-15 10:51] VITALS: BP 106/55
--- NOTE | 2019-01-15 12:44 | HC ---
[facility] [place] [address] CONSULTATION Name: DANIELLE JONES Room #: 350-P ADM IN M.R.#: [id number] Admission: 01/09/19 ������������������ Attend Phys: Toby Nash MD Discharge: ������������������ Date of : [birth year] Report #: [id number] THIS REPORT FOR: //name// CC: Toby Nash FAM unknown NEUROLOGY CONSULTATION HISTORY OF PRESENT ILLNESS: The patient is an 88-year-old female with encephalopathy. Apparently, the patient also has generalized weakness and the possibility of myasthenia gravis has been raised. Unfortunately, the patient is unable to provide any history. The patient has a diagnosis of dementia and is on medications to try to control sundowning. I tried to call the patient's daughter, but it went straight to voice mail. The majority of the history is obtained by reading the medical record. PAST MEDICAL HISTORY: Alzheimer's disease with behavioral disturbance, hypertension, gastroesophageal reflux, diabetes, congestive heart failure, depression. PAST SURGICAL HISTORY: Appendectomy, hysterectomy, left hip surgery. MEDICATIONS: Alogliptin 5 mg daily, Norvasc 5 mg daily, Cozaar 50 mg daily, Protonix 40 mg daily, aspirin 81 mg daily, CoQ10 100 mg daily, Amaryl 1 mg daily, iron 45 mg daily, spironolactone 25 mg daily, vitamin D 5000 units daily, melatonin 3 mg at bedtime, Effexor 75 mg daily, Seroquel 25 mg q. 6 hours p.r.n. anxiety, Lantus at bedtime, hydroxyzine 10 mg q.i.d. p.r.n. anxiety. ALLERGIES: CODEINE, FUROSEMIDE, CEPHALEXIN, MEPERIDINE. VITAL SIGNS: Temperature 36.5, pulse rate 82, respiratory rate 21, blood pressure 134/63, bedside pulse oximetry 94% on 3 liters. LABORATORY DATA: White blood cell count 9.3, hemoglobin 8.8, hematocrit 25.7, MCV 105.4, platelet count 296,000. Urinalysis; 1+ protein, trace blood. Chemistry; sodium 145, potassium 3.6, chloride 109, carbon dioxide 23, BUN 59, creatinine 1.6, glucose 329. B12 327. Folate 16.8. IMAGING STUDIES: A CT scan of the head dated 01/09/2019 demonstrates age appropriate cerebral atrophy and microvascular disease. NEUROLOGIC EXAMINATION: Cranial nerves 2-12 are grossly intact. She is able to move all 4 extremities equally. Reflexes are trace. Plantar responses are flexor. Coordination and gait could not be performed. [place] [address] CONSULTATION Name: DANIELLE JONES Room #: 350-[facility] IN ..#: [id number] Admission: 01/09/19 ������������������ Attend Phys: Toby Nash MD Discharge: ������������������ Date of : [birth year] Report #: [id number] IMPRESSION: This patient has a history of Alzheimer's disease. I have tried to speak to the patient's daughter to see if the patient is at her baseline or is worse. However, I understand the patient is nonambulatory and I do not think any medications for dementia would be of benefit at this time, although sometimes they can be used for behavior and have been successful for that; however, they can take 2-3 months before they become effective. With regard to myasthenia gravis, it is difficult to obtain a history from this patient. If you are looking for myasthenia gravis, acetylcholine receptor antibodies can be drawn. Otherwise, the only other way to do this would be with an outpatient EMG and a technique called repetitive stimulation. I thank you for your kind referral of the patient. ��������������������������������������������� <ELECTRONICALLY SIGNED> ���������������������������������������� By: Bertha Diop DO ��������������������������������������������� 01/15/19 1244 [id number] [id number] Bertha Diop DO /nt
--- NOTE | 2019-01-15 15:00 | NUR ---
LT ANTERIOR ANKLE WITH BLACKENED DRIED AREA NOTED..EXTENSIVE BRUISING TO LEFT LATERAL WALTON..DR HAGAN NOTIFIED AND ORTHO OFFICE ASSISTANT RECEPTIONIST JUDE CALLED..SHE ORDERED STAT XRAYS OF LT ANKLE AND WILL ASSESS...SHE CONSULTED WITH DR DYKES AND A DECISION WILL BE MADE IN MORNING REGARDING POSSIBLE SURGERY.. DAUGHTERS NOTIFIED..
[2019-01-15 16:12] VITALS: BP 136/72
[2019-01-15 20:00] VITALS: BP 120/53
[2019-01-16 04:00] VITALS: BP 133/46
[2019-01-16 06:47] LABS: ALBUMIN 2.7 g/dL (3.4-5.0); CALCIUM 8.9 mg/dL (8.5-10.1); CREATININE 1.7 mg/dL (0.6-1.0); PHOSPHORUS 3.8 mg/dL (2.5-4.9)
[2019-01-16 06:54] LABS: POTASSIUM 2.9 mmol/L (3.5-5.1)
[2019-01-16 07:33] VITALS: BP 142/72
--- NOTE | 2019-01-16 07:47 | NUR ---
PT LYING IN BED. NO APPARENT PAIN. RESTLESS ON AND OFF. WILL CONTINUE TO PROVIDE FREQUENT OBSERVATION.
--- NOTE | 2019-01-16 10:58 | NUR ---
WOUND CONSULT; INITIAL WOUND CARE ASSESMENT TODAY. LEFT ANTERIOR ANKLE RE; FRACTURE DISTALLY AND IS UNSTABLE AT THIS TIME. SURGICAL REPAIR DECISIONS ARE IMMINENT. A STABLE SCABLIKE AREA WITH NO SIGNS OR SYMPTOMS OF INFECTION AT THIS TIME. RECOMMENDATIONS; PAINT AREA TO THE LEFT ANTERIOR ANKLE WITH BETADINE DAILY FOR NOW. FLOAT ON PILLOWS. DISCUSSED WITH KIMBERLY
[2019-01-16 11:04] VITALS: BP 147/73
--- NOTE | 2019-01-16 14:13 | NUR ---
SW reviewed chart and spoke with nursing and attending physician. Pt was transferred to from ICU on 01/14. Ortho following for possible surgical intervention. Pt is minimally responsive at this time. MRI to be completed today and pt will have a swallow study due to possible aspiration. [facility] is following to assist as needed with discharge planning.
--- NOTE | 2019-01-16 15:07 | NUR ---
PATIENT WILL BE PLACED ON HOLD FOR OT DUE TO ANKLE SURGERY 01/16/19. WILL AWAIT POST OP ORDERS.
[2019-01-16 15:48] VITALS: BP 147/70
--- NOTE | 2019-01-16 18:12 | EEG ---
[facility] [place] [address] ELECTROENCEPHALOGRAM Name: DANIELLE JONES Room #: 350-P [facility] IN M.R.#: [id number] ������������������ Admission: 01/09/19 ������������������ Attend Phys: Toby Nash MD Discharge: ������������������ Date of : [birth year] Report #: [id number] ����������������������������������������������������������������� [id number] THIS REPORT FOR: //name// CC: Toby Nash FAM unknown The patient is an 88-year-old female with altered mental status. An EEG is requested for further evaluation. DESCRIPTION: The posterior dominant rhythm is not well developed and cannot be adequately measured. ____ bilaterally symmetrical throughout the recording. During the recording are relatively frequent sharp waves, maximal at T5 and T6. Exertionally, there is a rhythmicity to 4-5 Hz activity lasting several seconds. There were no ____ noted during the recording. Photic stimulation was not activating. IMPRESSION: This is an abnormal adult record with epileptiform activity maximal over the bilateral posterior temporal head regions. The record consists of ____ rhythmical and concerning for possible subclinical seizures. ���������������������������������������� <ELECTRONICALLY SIGNED> ���������������������������������������� By: Bertha Diop DO ��������������������������������������������� 01/16/191811 [id number] Bertha Diop DO /nt
[2019-01-16 19:14] VITALS: BP 116/54
--- NOTE | 2019-01-16 20:12 | NUR ---
WOUND CARE SAW PATIENT TODAY AND RECCOMENDED PAINTING LT ANTERIOR ANKLE WITH BETADINE AND CHARLIE...SURGERY PLANS TO OPERATE @ 1100 TUES ON LT ANKLE..CONSENT SIGNED..
[2019-01-17] VITALS (16 sets, daily range): BP systolic 104–184; BP diastolic 43–77
--- NOTE | 2019-01-17 04:16 | NUR ---
Patient oriented to person and has been confused/forgetful. Patient doesn't always respond to questions being asked; pt will just stare when being spoke to at times. Patient on room air and has been in no distress. Patient has so far had 4-5 incontinent soft, browm BM's this shift. Patient took pills slowly with water, and ate jello well. Patient NPO at midnight. Fall precautions in place.
[2019-01-17 05:29] LABS: HEMATOCRIT 27.9 % (37.0-47.0); HEMOGLOBIN 9.5 gm/dL (12.0-15.0); MCH 35.3 pg (26.0-34.0); MCHC 34.1 g/dL (28.0-37.0); MCV 103.4 fL (80.0-100.0); RBC 2.7 mil/uL (4.20-5.00); RDW 13.6 % (10.5-14.5); WBC 14.1 thou/uL (4.0-11.0)
[2019-01-17 05:42] LABS: ALBUMIN 2.4 g/dL (3.4-5.0); CALCIUM 8.6 mg/dL (8.5-10.1); CREATININE 1.3 mg/dL (0.6-1.0); PHOSPHORUS 3.2 mg/dL (2.5-4.9); POTASSIUM 3.3 mmol/L (3.5-5.1)
--- NOTE | 2019-01-17 12:16 | HC ---
[facility] [place] [address] CONSULTATION Name: DANIELLE JONES Room #: 350-P ADM IN M.R.#: [id number] Admission: 01/09/19 ������������������ Attend Phys: Toby Nash MD Discharge: ������������������ Date of : [birth year] Report #: [id number] THIS REPORT FOR: //name// CC: Toby LOOMIS unknown DATE OF SERVICE: 01/13/2019 ORTHOPEDIC CONSULTATION CHIEF COMPLAINT: Left ankle deformity/swelling. HISTORY OF PRESENT ILLNESS: The patient is a very pleasant 88-year-old female seen initially on 01/12/2019 for evaluation of her left ankle. The patient is currently in the ICU, was [facility] after having had an admission to [facility]. Her daughters are at bedside today and have provided further history than what was able to be obtained yesterday. They report sometime between last Wednesday and Wednesday, the patient sustained a fall. She has a history of frequent falls and they had noted an injury to her ankle. Initial history provided to me is that her ankle injury was several years old. They report that she has been very limited in her ability to ambulate and function and that currently they are expecting her to be basically bedridden and nonambulatory. The patient has been fairly somnolent and nonresponsive recently. PAST MEDICAL AND SURGICAL HISTORY: Includes Alzheimer dementia, hypertension, altered mental status, agitation, more recent respiratory distress, GERD, history of TIA, appendectomy, hysterectomy, left hip surgery, hypercholesterolemia. MEDICATIONS: Please see current MAR. ALLERGIES: CEPHALEXIN, FUROSEMIDE, MEPERIDINE, CODEINE. FAMILY HISTORY: Nonsmoker, occasional alcohol use, no recreational drug use. PHYSICAL EXAMINATION: GENERAL: The patient is somnolent, was arousable yesterday as well as today. The patient was unable to answer questions or provide any further history. EXTREMITIES: Examination of the left lower extremity as compared to the right reveals the pelvis is stable to AP and lateral compression. No obvious pain or tenderness about the hips, thighs, knees or legs are noted. There is a deformity consistent with a posterolaterally displaced ankle fracture dislocation on the left side as compared to the right. The patient exhibits no obvious grimacing or discomfort with gentle palpation of the foot. There is minimal swelling. The skin is intact. No evidence of fracture or blisters are [address] [address] CONSULTATION Name: DANIELLE JONES Bay Room #: 350-P [facility] IN M.R.#: [id number] Admission: 01/09/19 ������������������ Attend Phys: Toby Nash MD Discharge: ������������������ Date of : [birth year] Report #: [id number] noted. No spontaneous movement is noted in the lower extremities currently. The foot is otherwise warm with symmetric capillary refill compared to the opposite side. The right hip, knee and ankle demonstrate no acute injuries when placed throughout full passive range of motion. IMAGING: Radiographs were reviewed with the family and demonstrate an ankle fracture dislocation, possible trimalleolar. IMPRESSION: 1. Left ankle fracture dislocation in a nonambulatory patient. 2. Multiple medical comorbidities. PLAN: We reviewed treatment options for the patient's ankle injury. Originally, I was informed that this was an old and chronic injury and the family has informed me that this is more acute in nature. We discussed both nonoperative and operative treatment options. They are not interested in any sort of operative intervention. They feel like she is having a little, if any, pain. They expect her to be nonambulatory and do not want to go through any more extensive type procedures. We discussed if she did have more discomfort, one could consider some sort of splinting or immobilization, although we have to be more diligent with her skin care to prevent any skin breakdown, ulcerations or other issues related to the immobilization. They preferred to not immobilize her currently as they do not see her in any significant pain or discomfort. If the limb became more dysvascular with time, one may need to consider amputation. If she has been relatively nonambulatory for a period of time, we discussed her overall bone quality, likely will be soft, but she would have to be adherent to postoperative instructions of an attempted open reduction and internal fixation was made or even if an attempted fusion was performed at some point in the future. They have no interest in these procedures now and as long as she physically appears to be comfortable, they think it is reasonable to continue with nonoperative management given the other significant factors going on in her life. Questions were encouraged, all were answered. They felt comfortable with seeing myself Orthopedics on an as needed basis going forward. We will be available if they have any further questions or concerns regarding their mother. ��������������������������������������������� <ELECTRONICALLY SIGNED> ���������������������������������������� By: Ayo Bowens MD ��������������������������������������������� 01/17/19 1216 1448 0401 Ayo Bowens MD /nt
--- NOTE | 2019-01-17 14:51 | NUR ---
SW reviewed chart and spoke with nursing and attending physician. Pt had surgery today for left ankle close reduction and pinning. SW met with pt and dtrs at bedside. Pt's dtrs had questions regarding SNF v. hospice. SW provided framework for hospice services. Pt's dtrs state they would like for pt to get some therapy initially to be able to do some ADLs for herself. Prior to admission, pt was able to feed herself and brush her hair. Pt's family is not expecting her to ambulate independently. Palliative care physician consulted and will see pt this afternoon. SW provided pt's family with list of in-network SNFs for review. However, pt would need a level 2 assessment due to recent inpt stay in [facility] unit. Awaiting input from physicians at this time. GERSON is following to assist as needed with discharge planning.
--- NOTE | 2019-01-17 17:31 | NUR ---
ASSUMED PATIENT CARE AT 0700, ALERT TO SELF RESTLESS. PATIENT HAD LEFT ANKLE REDUCTION WITH SPLINT. PATIENT DROWEY AFTER SURGERY. TOLERATED CLEAR LIQUID. BED ALRAM ON. ASSISTED PATIENT WITH MEAL. SLOWLY TOWARDS POC GOALS.
[2019-01-18] VITALS (12 sets, daily range): BP systolic 70–146; BP diastolic 34–67
--- NOTE | 2019-01-18 03:33 | NUR ---
Patient oriented to self, restless and confused; occassionally slow to response. Hydrocodone pill given once for pain on left ankle from surgery. Otherwise patient seems to be tolerating well. Surgical dressing intact. Patient fed jello and whole oral pills, patient tolerated well. Slow progress toward plan of care goals.
[2019-01-18] MEDS ORDERED: COREG6.25 MG PO (09:41)
[2019-01-18] MEDS ORDERED: COZAAR 50 MG TA50 M1 PO (09:41)
[2019-01-18] MEDS ORDERED: HEPARIN SO5000 UNIT/ SUBQ (09:41)
[2019-01-18] MEDS ORDERED: HYDROCODON-ACE1 EAC7 PO (09:42)
[2019-01-18] MEDS ORDERED: KEPPRA750 MG PO (09:42)
[2019-01-18] MEDS ORDERED: ASPIRIN325 PO (09:49)
[2019-01-18] MEDS ORDERED: LIPITOR 20 MG T20 M1 PO (09:49)
[2019-01-18] MEDS ORDERED: AMARYL2 MG PO (09:49)
--- NOTE | 2019-01-18 10:19 | NUR ---
WOUND CARE FOLLOW UP; A CLEAN, DRY AND INTACT SURGICAL DRESSING IN PLACE WHICH IS CASTED. WE ARE AWAITING ORDER TO CONTINUE TO FOLLOW THIS PATIENT AT THIS TIME. RECOMMENDATIONS; NONE AT THIS TIME DISCUSSED WITH RN
--- NOTE | 2019-01-18 10:41 | O ---
[facility] [place] [address] OPERATIVE REPORT Name: DANIELLE JONES Room #: 350-P [facility] IN M.R.#: [id number] Admission: 01/09/19 ������������������ Attend Phys: Toby Nash MD Discharge: ������������������ Date of : [birth year] Report #: [id number] THIS REPORT FOR: //name// CC: Toby LOOMIS unknown DATE OF SERVICE: 01/17/2019 PREOPERATIVE DIAGNOSIS: Left ankle fracture dislocation, trimalleolar with medial malleolar skin necrosis/pressure induced ulceration. POSTOPERATIVE DIAGNOSIS: Left ankle fracture dislocation, trimalleolar with medial malleolar skin necrosis/pressure induced ulceration. PROCEDURE PERFORMED: Left ankle closed reduction with percutaneous pinning. SURGEON: Ayo Bowens MD ANESTHESIA: Femoral and sciatic nerve block. FLUIDS: Please see anesthesia records. ESTIMATED BLOOD LOSS: None. PROCEDURE: We reviewed treatment options with the patient's daughters at length multiple times over the past several days including yesterday and today. They have elected the above procedure. We discussed the potential risks, benefits, alternatives, complications of her ankle fracture dislocation, her skin wound/medial malleolar necrosis, wound team has already been around to evaluate her. We discussed the potential for hardware migration and loss of reduction. The patient's family feels that she is going to be nonambulatory going forward and would like to stabilize this fracture in the least invasive manner possible. After a satisfactory block was performed by Anesthesia, she was brought back to the operative suite. The limb was sterilely prepped and draped and percutaneous crossing Steinmann pins and K-wires were utilized from both the medial and lateral side to hold the ankle in a reduced position. The medial malleolar K-wire was placed distal to the area of skin necrosis, which was more proximally based. No exposed bone or tissue was noted, but there was darkening of the skin tissue and a 2 x 4 cm area medially. Compartments were all soft. The pins were cut-flush and then driven under the skin. Xeroform gauze was placed around the pin sites and over the medial wound, followed by 4 x 4s, sterile cast padding, bulky Kelley, cotton roll and then a posterior sugar tong splint. This was overwrapped with an Pepe bandage and she was brought back to the recovery room in stable condition. We discussed the wound and continued need for our wound team to evaluate and manage this. We discussed potential complications arising specifically from that as well. Over the next several days, we will transition [address] [address] OPERATIVE REPORT Name: DANIELLE JONES Room #: 350-P [facility] IN .R.#: [id number] Admission: 01/09/19 ������������������ Attend Phys: Toby Nash MD Discharge: ������������������ Date of : [birth year] Report #: [id number] her to an articulated Cam walker to accommodate her in slight ankle equinus position and allow for easier management of her wound. The patient's family felt comfortable in proceeding in this manner. ��������������������������������������������� <ELECTRONICALLY SIGNED> ���������������������������������������� By: Ayo Bowens MD ��������������������������������������������� 01/18/19 1041 [id number] 1325 Ayo Bowens MD /nt
--- NOTE | 2019-01-18 10:50 | NUR ---
GERSON reviewed chart and spoke with nursing and attending physician. GERSON spoke with pt's dtr, Lynne, via phone to discuss discharge plan. Pt's dtrs are touring SNFs at the moment and would like referrals to be sent to [facility] and [facility]. Awaiting therapy evals at this time. meeting planner to send referrals. GERSON is following to assist as needed with discharge planning.
--- NOTE | 2019-01-18 11:49 | NUR ---
Discharge planning: dp faxed initial SNF Referral to 3 facilities: [facility], [facility] and [facility].
[2019-01-18 19:10] LABS: SYPHILIS AB Negative (Negative)
--- NOTE | 2019-01-18 20:09 | NUR ---
JOB SERVICE CONSULTANT CALLED, AFTER SPEAKING TO FAMILY JOB SERVICE CONSULTANT CANCELED.
[2019-01-18 20:11] LABS: BE(vivo) -1.7 mmol/L (-2 to +3); PCO2 33.3 mmHg (35.0-45.0); pH 7.438 (7.360-7.450); sO2 97.5 % (92.0-98.0)
--- NOTE | 2019-01-18 21:19 | NUR ---
PATIENT ORIENTED TO SELF AND TAKING MEDS IN THE MORNING. IN AFTERNOON PATIENT BECOMING LETHARGIC. NOTIFIED HOSPITALIST AND BOLUS OF IV FLUID, ATROPINE, IV GLUCOGON BUT PATIENT CONTINUE LETHARGY. HOSPITALIST AWARE AND NOTIFIED DIRECTOR CENTER NURSE AND FAMILY AT BEDSIDE OF PATIENT'S DECLINING CONDITION. WILL CONTINUE TO MONITOR.
--- NOTE | 2019-01-19 00:13 | NUR ---
Rapid response team called on patient at 1940. Patient BP was 77/40 and was lethargic with fixed pupils. Patient was unresponsive to sternal rubbing and wouldn't open her eyes, but was responsive to painful stimuli. Blood sugar taken and was 262. This RN, ice house supervisor, 3W charge nurse, RT, Radha Lay TUFTER, and family were all at bedside. The family decided that they want minimal interventions as she is DNR and only want to try a fluid bolus. Family stated they didn't want to send her to the ICU or do any further testing as they believe the patient would just want to be kept comfortable from this point forward. A 500 mL bolus was given. BP was 84/34 post bolus. Maintenance fluids started at 75 mls/hr per Radha since the patient's BP is still low. Family has been at bedside with the patient and very tearful at times. Questions and concerns answered by this RN, the ice house supervisor, and Radha Lay NP. Will continue to monitor.
[2019-01-19 04:15] VITALS: BP 81/35
[2019-01-19 07:06] VITALS: BP 97/47
[2019-01-19] MEDS ORDERED: MSL20MG/ML PO (09:46)
--- NOTE | 2019-01-19 12:16 | NUR ---
GERSON reviewed chart and spoke with attending physician. Pt had change in condition last evening. Family has chosen to make pt comfort care and not pursue any agressive treatment. GERSON spoke with pt's dtr/DPOA, Lynne, via phone to discuss plan. Pt's family is all in agreement with plan for hospice. SW provided options for hospice facilities. Pt's family would like a referral to be sent to [facility]. GERSON faxed info to [facility] and notified liaison, who will contact pt's dtr to arrange eval later today. Outside the Hospital DNR form signed by attending physician. GERSON is following to assist as needed with discharge planning.
[2019-01-19 12:19] VITALS: BP 111/45
[2019-01-19 14:37] VITALS: BP 108/51
[2019-01-19 16:50] VITALS: BP 100/36
--- NOTE | 2019-01-19 17:42 | NUR ---
Assumed pt care this am, pt is unresponsive, with fixed pupils, pt would rarely pull away when soles of the feet are stimulated. Unresponsive to sternal rubs and painful stimuli for most fo the time. Family at bedside and aware of decline in health, family refused any medication, assessments (blood sugar). Pt was kept on comfort care, O2 via NC, FC draining yellow urine. All medications and IV fluids have been DC by Dr. Cali. CM and hopsice business services representative have worked with the family. Pt will be moving to hospice care later on tonight (9:30pm) since facility needs to prepare the room. Will endorse to the night nurse for report and transportation to be called out. Kept pt and the family comfortable.
[2019-01-19 19:06] VITALS: BP 102/47
--- NOTE | 2019-01-19 22:35 | NUR ---
Report called to hospice house around 2029. FD called at 2039 to verify they have info to transport pt. Family at bedside. Pt. remains unresponive on 5L/NC. Discharged to Hospice house with outside DNR form and left hospital around 2234.
== END 2019-01-19 22:35 | disposition hospice, inpatient (51) | DRG 981 ==
LOC: 4W 12:57 → ICU 12:57 → 4W 12:58 → ICU 01-11 06:09 → 3W 01-14 02:41
PROVIDERS: Anesthesiology; Hospitalist; Nurse Practitioner; Nurse Practitioner Acute Care; Nurse Practitioner Adult Health; ADMIT Hospitalist
PROC: 0QSK34Z Reposition Left Fibula with Internal Fixation Device, Percutaneous Approach (ICD-10-PCS; principal; 2019-01-17)
PROC: 0QSH34Z Reposition Left Tibia with Internal Fixation Device, Percutaneous Approach (ICD-10-PCS; principal; 2019-01-17)
DX: J69.0 Pneumonitis due to inhalation of food and vomit (principal); J96.01 Acute respiratory failure with hypoxia; G93.41 Metabolic encephalopathy; J96.02 Acute respiratory failure with hypercapnia; I50.41 Acute combined systolic (congestive) and diastolic (congestive) heart failure; I63.9 Cerebral infarction, unspecified; N17.9 Acute kidney failure, unspecified; R65.10 Systemic inflammatory response syndrome (SIRS) of non-infectious origin without acute organ dysfunction; I42.9 Cardiomyopathy, unspecified; I13.0 Hypertensive heart and chronic kidney disease with heart failure and stage 1 through stage 4 chronic kidney disease, or unspecified chronic kidney disease; S82.842A Displaced bimalleolar fracture of left lower leg, initial encounter for closed fracture; Y99.8 Other external cause status; K21.9 Gastro-esophageal reflux disease without esophagitis; E78.5 Hyperlipidemia, unspecified; R41.0 Disorientation, unspecified; F32.9 Major depressive disorder, single episode, unspecified; F41.9 Anxiety disorder, unspecified; G30.9 Alzheimer's disease, unspecified; F02.80 Dementia in other diseases classified elsewhere, unspecified severity, without behavioral disturbance, psychotic disturbance, mood disturbance, and anxiety; N18.9 Chronic kidney disease, unspecified; E78.00 Pure hypercholesterolemia, unspecified; E11.65 Type 2 diabetes mellitus with hyperglycemia; M19.072 Primary osteoarthritis, left ankle and foot; E11.22 Type 2 diabetes mellitus with diabetic chronic kidney disease; R29.6 Repeated falls; D53.9 Nutritional anemia, unspecified; Z66 Do not resuscitate; E87.6 Hypokalemia; Z79.4 Long term (current) use of insulin; Z81.8 Family history of other mental and behavioral disorders; Z86.73 Personal history of transient ischemic attack (TIA), and cerebral infarction without residual deficits; Z90.49 Acquired absence of other specified parts of digestive tract; Z90.710 Acquired absence of both cervix and uterus; Z88.6 Allergy status to analgesic agent; Z88.8 Allergy status to other drugs, medicaments and biological substances; Z79.82 Long term (current) use of aspirin; Z79.899 Other long term (current) drug therapy; W18.39XA Other fall on same level, initial encounter; Y93.89 Activity, other specified; Y92.89 Other specified places as the place of occurrence of the external cause
CPT/HCPCS: 10040; 10045; 10078; 10879; 50010; 50101; 51275; 51335; 51741; 57091; 70005